=== PATIENT | female | born 1960 | race American Indian/Alaskan Native ===

== ENCOUNTER 2022-05-30 11:36 | Inpatient (IN) | payer MEDICAID, OTHER, SELFPAY ==
[2022-05-30] VITALS (34 sets, daily range): BP systolic 82–125; BP diastolic 50–71; PULSE 57–105; RESP 19–39; TEMP 36.1–36.9; O2SAT 89–96; BMI 16.6
--- NOTE | 2022-05-30 | DI.CT.S_ITS ---
PROCEDURE: CT ANGIO CHEST PE PROTOCOL INDICATIONS: HIGH D-DIMER TECHNIQUE: After the administration of intravenous contrast, 2 mm thick sections acquired from the pulmonary apices to the posterior costophrenic angles. 3-dimensional maximum intensity projection (MIP) coronal and sagittal reformats were then acquired through the thorax. For radiation dose reduction, the following was used: automated exposure control, adjustment of mA and/or kV according to patient size. COMPARISON: [facility], CT, CT ABDOMEN PELVIS W CON, 05/30/2022, 12:57. [facility], CR, XR CHEST 1V, 05/30/2022, 12:28. FINDINGS: Image quality: Excellent. Lungs and pleura: A diffuse patchy airspace consolidation in both lungs most prominent in the right lower lobe consistent with bronchopneumonia. No pleural effusions or pneumothorax. Central and peripheral airways are patent and normal in caliber. Centrilobular emphysematous changes in the apices. Mediastinum: Heart size is normal. No pericardial effusion. No mediastinal adenopathy by size criteria. Thoracic aorta and central pulmonary arteries are normal in size. Esophagus is normal in caliber. No hiatal hernia. Bones and chest wall: No suspicious bony lesions. No vertebral body compression fractures. No axillary or supraclavicular adenopathy by size criteria. Thyroid gland is normal. Abdomen: See separately dictated CT of the abdomen. IMPRESSION: 1. No pulmonary embolism. 2. Diffuse bilateral patchy areas of consolidation consistent with bronchopneumonia. Dictated by: Piero Borrero M.D. on 05/30/2022 at 14:14 Approved by: Piero Borrero M.D. on 05/30/2022 at 14:18
--- NOTE | 2022-05-30 11:52 | DI.RAD.S_ITS ---
PROCEDURE: XR CHEST 1V INDICATIONS: Shortness of breath TECHNIQUE: One view of the chest was acquired. COMPARISON: [facility], , CHEST 2 VIEW, 12/29/2014, 11:41. FINDINGS: Surgical changes and devices: None. Lungs and pleura: There are diffuse patchy bilateral airspace opacities. No pneumothorax or pleural effusion. Mediastinum: Mediastinal contours appear normal. Heart size is normal. Bones and chest wall: No suspicious bony lesions. Overlying soft tissues appear unremarkable. IMPRESSION: Diffuse patchy bilateral airspace opacities most consistent with a diffuse infectious process.. Dictated by: Piero Borrero M.D. on 05/30/2022 at 12:58 Approved by: Piero Borrero M.D. on 05/30/2022 at 13:00
[2022-05-30 12:00] LABS: Add Manual Diff / Slide Review NO; Basophils Absolute Auto 0 /uL (0-100); Basophils Percent Auto 0.1 % (0-2); Eosinophils Absolute Auto 0 /uL (0-450); Hematocrit 36.3 % (36-46); Hemoglobin 11.7 g/dL (12.0-16.0); Lymphocytes Absolute Auto 800 /uL (1100-4500); Lymphocytes Percent Auto 3.4 % (25-40); Mean Corpuscular HGB Conc 32.1 % (30-36); Mean Corpuscular Hemoglobin 27.2 PG (26-34); Mean Corpuscular Volume 84.7 fL (80-100); Monocytes Absolute Auto 900 /uL (0-900); Neutrophils Absolute Auto 20900 /uL (1500-7000); Neutrophils Percent Auto 92.5 % (50-75); Platelet Count 582 X10^3/uL (150-400); Red Blood Cell Count 4.29 X10^6/uL (4.0-5.2); Red Cell Distribution Width 15.2 % (11.6-14.8); White Blood Cell Count 22.7 X10^3/uL (4.5-11.0)
[2022-05-30 12:13] LABS: HEMOLYSIS < 15 (0-50); Lactate (Lactic Acid) 1.8 mmol/L (0.7-2.1); Potassium 4.5 mmol/L (3.4-5.1)
[2022-05-30 12:14] LABS: Alanine Aminotransferase 26 IU/L (<35); Albumin 3.6 g/dL (3.5-5.0); Albumin Globulin Ratio 0.9 (1.0-2.8); Alkaline Phosphatase 168 U/L (38-126); Aspartate Aminotransferase 53 IU/L (14-36); BUN Creatinine Ratio 21.5 (6-22); Bilirubin Total 0.9 mg/dL (0.2-1.3); Blood Urea Nitrogen 17 mg/dL (7-17); Calcium 8.5 mg/dL (8.4-10.2); Carbon Dioxide 21 mmol/L (22-32); Chloride 100 mmol/L (98-107); Estimated Glomerular Filt Rate > 60 mL/min (>60); Globulin 3.9 g/dL (1.7-4.1); Glucose 85 mg/dL (80-110); Sodium 138 mmol/L (137-145); Total Protein 7.5 g/dL (6.3-8.2)
[2022-05-30 12:18] LABS: INR 1.3 (0.9-1.3); Prothrombin Time 15.4 SECONDS (10.1-12.7)
--- NOTE | 2022-05-30 12:21 | DI.US.S_ITS ---
PROCEDURE: US ABDOMEN LIMITED INDICATIONS: RUQ pain TECHNIQUE: Real-time focused scanning was performed of the abdomen, with image documentation. COMPARISON: [facility], CT, CT ABDOMEN PELVIS W CON, 05/30/2022, 12:57. FINDINGS: The liver demonstrates normal size and overall normal echogenicity. Multiple simple appearing nonvascular hepatic cysts are seen, with the largest on the left measuring 4.3 cm and the largest on the right measuring 5.2 cm. No findings of gallstones or sludge are seen. The gallbladder wall is not thickened, measuring 3 mm or less. Gallbladder wall polyps are seen, with the largest measuring 5 mm. No specific pericholecystic fluid is seen. The sonographic Elloitt sign is negative. There is no biliary dilatation, the common bile duct measures 3 mm. No significant pancreatic abnormality is seen on these images. IMPRESSION: The gallbladder demonstrates a normal sonographic appearance. No biliary dilatation is seen. Simple appearing liver cysts are incidentally noted. Dictated by: Bonilla Whitmore M.D. on 05/30/2022 at 12:28 Approved by: Bonilla Whitmore M.D. on 05/30/2022 at 12:29
[2022-05-30 12:26] LABS: NT-proBNP (BNP-Adult 18+) 1540 pg/mL (<125); Troponin I < 0.012 ng/mL (0.01-0.034)
[2022-05-30 12:36] LABS: Influenza A - CEPHEID Flu A NEGATIVE (NEGATIVE); Influenza B - CEPHEID Flu B NEGATIVE (NEGATIVE); Respiratory Syncytial Virus Negative (Negative)
[2022-05-30 12:36] LABS: D Dimer 2007 ng/ml (<500)
[2022-05-30 12:37] LABS: COVID-19 CEPHEID 4-PLEX PCR Negative (Negative)
--- NOTE | 2022-05-30 12:37 | ED_ITS ---
HPI - Sepsis <Delmis Tenorio PA-C - Last Filed: 05/30/22 19:16> General Chief Complaint: Shortness of Breath/Dyspnea Mode of arrival: Wheelchair Source: patient Limitations: no limitations Evaluation Sepsis Screen: No Definite Risk Sepsis Infection Criteria Present: None Narrative: 62-year-old female with no reported past medical history, current daily smoker presents to the ED with 2 days of worsening shortness of breath. Patient states that her symptoms started about 3 weeks ago with a cough. Patient states that the cough has been worsening, she has started experiencing shortness of breath over the last 2 days. Patient also endorses some intermittent fevers over the last 2 days. Patient denies chest pain, nausea, vomiting, diarrhea, constipation, dysuria, lightheadedness, dizziness, syncope. Patient does endorse some right upper quadrant pain. She is unsure if it is from the coughing or something else. Patient denies any significant medical history including asthma, COPD, emphysema, cardiac issues. Review of Systems <Delmis Tenorio PA-C - Last Filed: 05/30/22 19:16> Review of Systems ROS Unobtainable: All systems reviewed & are unremarkable except as noted in HPI and below Constitutional Constitutional: Denies chills, Reports fatigue, Denies fever(s), Denies frequent falls, Denies lethargy and Denies weakness Eyes Eyes: Denies change in vision, Denies eye discharge, Denies irritation and Denies loss of vision ENT Ears, Nose, Mouth, and Throat: Denies change in voice, Denies dizziness, Denies neck pain, Denies sore throat and Denies throat swelling Cardiovascular Cardiovascular: Denies chest pain, Denies irregular heart rhythm, Denies lightheadedness, Denies palpitations, Reports dyspnea, Reports dyspnea on exertion and Denies orthopnea Respiratory Respiratory: Reports cough, Reports dyspnea, Reports dyspnea on exertion and Denies wheezing Gastrointestinal Gastrointestinal: Reports abdominal pain, Denies change in bowel habits, Denies diarrhea, Denies nausea and Denies vomiting Genitourinary Genitourinary: Denies hematuria, Denies flank pain, Denies urinary incontinence and Denies urinary urgency Musculoskeletal Musculoskeletal: Denies back pain, Denies muscle weakness, Denies neck pain, Denies numbness and Denies tingling Integumentary/Breasts Skin/Breast: Denies pruritus, Denies erythema, Denies rash and Denies wounds Neurologic Neurologic: Denies behavioral changes, Denies confusion, Denies dizziness, Denies frequent falls, Denies loss of vision, Denies numbness, Denies tingling and Denies weakness Psychiatric Psychiatric: Denies anxiety, Denies behavioral changes, Denies confusion, Denies depression, Denies homicidal ideation and Denies suicidal ideation Endocrine Endocrine: Reports fatigue, Denies flushing and Denies palpitations Hematologic/Lymphatic Hematologic/Lymphatic: Denies easy bruising Allergic/Immunologic Allergic/Immunologic: Denies urticaria, Denies throat swelling and Denies wheezing Patient History <Delmis Tenorio PA-C - Last Filed: 05/30/22 19:16> Medical History Opiate use Surgical History No pertinent past surgical history Family History Mother No pertinent past medical history Father No pertinent past medical history Social History household members: family and children Smoking Status: Current every day smoker Smoking Status: Current every day smoker alcohol intake frequency: holidays/special occasions only Substance Use Type: former substance user Exam <Delmis Tenorio PA-C - Last Filed: 05/30/22 19:16> Narrative Exam Narrative: Const General:?cooperative, healthy appearing and comfortable [facility] Head:?normal to inspection Ears:?hearing grossly normal bilaterally Nose:?external nose normal Face and sinus:?normal facial exam and sinuses nontender Mouth:?oral mucosae normal Throat:?posterior oropharynx normal Eyes General:?appearance normal, both eyes and all related structures Neck Neck:?normal visual inspection and no lymphadenopathy noted Resp Effort & Inspection:? Labored breathing, marked orthopnea, 89% on room air, 92% on 3 L NC Auscultation:?clear to auscultation bilaterally; Cardio Rate:?regular rate Rhythm:?regular rhythm GI Abdomen is soft, nondistended, tender to palpation in the right upper quadrant. Neuro General:?patient alert, patient awake and patient oriented x3 Initial Vital Signs Initial Vital Signs: Vital Signs Temperature 97.5 F L 05/30/22 11:40 Pulse Rate 105 H 05/30/22 11:40 Respiratory Rate 24 05/30/22 11:40 Blood Pressure 114/61 05/30/22 11:40 Pulse Oximetry 89 L 05/30/22 11:40 Oxygen Delivery Method 05/30/22 11:40 <Logan Bray MD - Last Filed: 05/31/22 08:07> Initial Vital Signs Initial Vital Signs: Vital Signs Temperature 97.5 F L 05/30/22 11:40 Pulse Rate 105 H 05/30/22 11:40 Respiratory Rate 24 05/30/22 11:40 Blood Pressure 114/61 05/30/22 11:40 Pulse Oximetry 89 L 05/30/22 11:40 Oxygen Delivery Method 05/30/22 11:40 Course <Delmis Tenorio PA-C - Last Filed: 05/30/22 19:16> Orders Ordered: Acetaminophen (Acetaminophen 325 Mg Tablet) 650 mg PO Q6H PRN PRN Reason: Fever/Mild Pain (1-3) Albuterol (Albuterol 2.5 Mg/3 Ml Neb (Adult)) 2.5 mg INH [id number] PRN PRN Reason: Shortness Of Breath Enoxaparin Sodium (Enoxaparin 40 Mg/0.4 Ml Syringe) 40 mg SUBCUT DAILY [facility] Sodium Chloride (Normal Saline 0.9%) 1,000 mls @ 100 mls/hr IV CONT [facility] Last Admin: 05/31/22 05:21 Dose: 100 mls/hr Documented By: Infusion: 05/31/22 04:14 Dose: 100 mls/hr Documented By: Admin: 05/30/22 18:14 Dose: 100 mls/hr Documented By: CLP Ceftriaxone Sodium 1,000 mg/ (Sodium Chloride) 100 mls @ 200 mls/hr IV Q24H [facility] Last Admin: 05/30/22 18:14 Dose: 200 mls/hr Documented By: CLP Azithromycin 500 mg/ Dextrose 250 mls @ 250 mls/hr IV Q24H [facility] Stop: 06/01/22 19:59 Last Admin: 05/30/22 20:53 Dose: 250 mls/hr Documented By: MS Methadone HCl (Methadone 10 Mg Tablet) 170 mg PO DAILY [facility] Naloxone HCl (Naloxone 0.4 Mg/Ml Vial) 0.2 mg IV Q2MIN PRN PRN Reason: Opiate Reversal Ondansetron HCl (Ondansetron 4 Mg/2 Ml Inj) 4 mg IV Q8HR PRN PRN Reason: Nausea And Vomiting Discontinued Medications Furosemide (Furosemide 40 Mg/4 Ml Vial) 40 mg IV NOW ONE Stop: 05/30/22 13:40 Last Admin: 05/30/22 16:55 Dose: Not Given Documented By: AMOS Sodium Chloride (Normal Saline 0.9%) 1,365 mls @ 455 mls/hr 30 ml/kg infuse over 3 hr (1365 ml) IV NOW ONE Stop: 05/30/22 15:14 Last Infusion: 05/30/22 16:16 Dose: 0 mls/hr Documented By: Admin: 05/30/22 12:40 Dose: 455 mls/hr Documented By: AMOS Piperacillin Sod/Tazobactam (Sod 4.5 gm/ Sodium Chloride) 100 mls @ 200 mls/hr IV NOW ONE Stop: 05/30/22 12:17 Last Infusion: 05/30/22 14:31 Dose: 0 mls/hr Documented By: Admin: 05/30/22 13:22 Dose: 200 mls/hr Documented By: AMOS Vancomycin HCl (Vancomycin) 750 mg in 150 mls @ 150 mls/hr IV NOW ONE Stop: 05/30/22 13:19 Last Infusion: 05/30/22 15:34 Dose: 0 mls/hr Documented By: Admin: 05/30/22 14:24 Dose: 150 mls/hr Documented By: AMOS Methadone HCl (Methadone 10 Mg Tablet) 40 mg PO NOW ONE Stop: 05/30/22 18:28 Last Admin: 05/30/22 18:44 Dose: 40 mg Documented By: JIMMY Vital Signs Vital signs: Vital Signs - 8 hr 05/30/22 11:40 05/30/22 11:43 05/30/22 11:44 Temperature 97.5 F L Pulse Rate 105 H 57 L 57 L Respiratory Rate 24 Blood Pressure 114/61 Pulse Oximetry 89 L 92 89 L Oxygen Delivery Method Room Air 05/30/22 11:44 05/30/22 12:00 05/30/22 12:01 Temperature Pulse Rate 88 Respiratory Rate 30 H Blood Pressure 114/61 115/53 L Pulse Oximetry 92 Oxygen Delivery Method 05/30/22 12:01 02/07/23 12:30 05/30/22 13:00 Temperature Pulse Rate 86 86 81 Respiratory Rate 30 H 34 H 26 H Blood Pressure Pulse Oximetry 92 92 94 Oxygen Delivery Method 05/30/22 13:29 05/30/22 13:29 05/30/22 13:30 Temperature Pulse Rate 73 Respiratory Rate 26 H Blood Pressure 98/53 L 93/56 L Pulse Oximetry 93 Oxygen Delivery Method 05/30/22 13:30 05/30/22 13:50 05/30/22 13:50 Temperature Pulse Rate 71 68 Respiratory Rate 25 H 26 H Blood Pressure 91/53 L Pulse Oximetry 93 94 Oxygen Delivery Method 05/30/22 14:00 05/30/22 14:00 05/30/22 14:06 Temperature Pulse Rate 69 Respiratory Rate 28 H Blood Pressure 84/54 L 96/54 L Pulse Oximetry 96 Oxygen Delivery Method 05/30/22 14:06 05/30/22 14:10 05/30/22 14:10 Temperature Pulse Rate 75 72 Respiratory Rate 32 H 28 H Blood Pressure 89/50 L Pulse Oximetry 96 95 Oxygen Delivery Method 05/30/22 14:12 05/30/22 14:12 05/30/22 14:17 Temperature Pulse Rate 71 Respiratory Rate 26 H Blood Pressure 89/51 L 82/52 L Pulse Oximetry 95 Oxygen Delivery Method 05/30/22 14:17 05/30/22 14:20 05/30/22 14:20 Temperature Pulse Rate 72 70 Respiratory Rate 28 H 22 Blood Pressure 87/52 L Pulse Oximetry 94 95 Oxygen Delivery Method 05/30/22 14:30 05/30/22 14:30 05/30/22 14:40 Temperature Pulse Rate 71 Respiratory Rate 26 H Blood Pressure 85/53 L 91/52 L Pulse Oximetry 95 Oxygen Delivery Method 05/30/22 14:40 05/30/22 14:50 05/30/22 14:50 Temperature Pulse Rate 72 71 Respiratory Rate 26 H 30 H Blood Pressure 92/53 L Pulse Oximetry 94 94 Oxygen Delivery Method 05/30/22 15:00 05/30/22 15:00 05/30/22 15:11 Temperature Pulse Rate 71 Respiratory Rate 39 H Blood Pressure 91/53 L 125/71 Pulse Oximetry 96 Oxygen Delivery Method 05/30/22 15:11 05/30/22 15:20 05/30/22 15:20 Temperature Pulse Rate 88 74 Respiratory Rate 37 H 33 H Blood Pressure 99/51 L Pulse Oximetry 90 L 93 Oxygen Delivery Method 05/30/22 15:30 05/30/22 15:30 Temperature Pulse Rate 75 Respiratory Rate 27 H Blood Pressure 90/55 L Pulse Oximetry 95 Oxygen Delivery Method <Logan Bray MD - Last Filed: 05/31/22 08:07> Orders Ordered: Acetaminophen (Acetaminophen 325 Mg Tablet) 650 mg PO Q6H PRN PRN Reason: Fever/Mild Pain (1-3) Albuterol (Albuterol 2.5 Mg/3 Ml Neb (Adult)) 2.5 mg INH [id number] PRN PRN Reason: Shortness Of Breath Enoxaparin Sodium (Enoxaparin 40 Mg/0.4 Ml Syringe) 40 mg SUBCUT DAILY [facility] Sodium Chloride (Normal Saline 0.9%) 1,000 mls @ 100 mls/hr IV CONT [facility] Last Admin: 05/31/22 05:21 Dose: 100 mls/hr Documented By: Infusion: 05/31/22 04:14 Dose: 100 mls/hr Documented By: Admin: 05/30/22 18:14 Dose: 100 mls/hr Documented By: JIMMY Ceftriaxone Sodium 1,000 mg/ (Sodium Chloride) 100 mls @ 200 mls/hr IV Q24H [facility] Last Admin: 05/30/22 18:14 Dose: 200 mls/hr Documented By: CLP Azithromycin 500 mg/ Dextrose 250 mls @ 250 mls/hr IV Q24H [facility] Stop: 06/01/22 19:59 Last Admin: 05/30/22 20:53 Dose: 250 mls/hr Documented By: Methadone HCl (Methadone 10 Mg Tablet) 170 mg PO DAILY [facility] Naloxone HCl (Naloxone 0.4 Mg/Ml Vial) 0.2 mg IV Q2MIN PRN PRN Reason: Opiate Reversal Ondansetron HCl (Ondansetron 4 Mg/2 Ml Inj) 4 mg IV Q8HR PRN PRN Reason: Nausea And Vomiting Discontinued Medications Furosemide (Furosemide 40 Mg/4 Ml Vial) 40 mg IV NOW ONE Stop: 05/30/22 13:40 Last Admin: 05/30/22 16:55 Dose: Not Given Documented By: AMOS Sodium Chloride (Normal Saline 0.9%) 1,365 mls @ 455 mls/hr 30 ml/kg infuse over 3 hr (1365 ml) IV NOW ONE Stop: 05/30/22 15:14 Last Infusion: 05/30/22 16:16 Dose: 0 mls/hr Documented By: Admin: 05/30/22 12:40 Dose: 455 mls/hr Documented By: AMOS Piperacillin Sod/Tazobactam (Sod 4.5 gm/ Sodium Chloride) 100 mls @ 200 mls/hr IV NOW ONE Stop: 05/30/22 12:17 Last Infusion: 05/30/22 14:31 Dose: 0 mls/hr Documented By: Admin: 05/30/22 13:22 Dose: 200 mls/hr Documented By: AMOS Vancomycin HCl (Vancomycin) 750 mg in 150 mls @ 150 mls/hr IV NOW ONE Stop: 05/30/22 13:19 Last Infusion: 05/30/22 15:34 Dose: 0 mls/hr Documented By: Admin: 05/30/22 14:24 Dose: 150 mls/hr Documented By: AMOS Methadone HCl (Methadone 10 Mg Tablet) 40 mg PO NOW ONE Stop: 05/30/22 18:28 Last Admin: 05/30/22 18:44 Dose: 40 mg Documented By: JIMMY Vital Signs Vital signs: Vital Signs - 8 hr 05/30/22 11:40 05/30/22 11:43 05/30/22 11:44 Temperature 97.5 F L Pulse Rate 105 H 57 L 57 L Respiratory Rate 24 Blood Pressure 114/61 Pulse Oximetry 89 L 92 89 L Oxygen Delivery Method Room Air 05/30/22 11:44 05/30/22 12:00 05/30/22 12:01 Temperature Pulse Rate 88 Respiratory Rate 30 H Blood Pressure 114/61 115/53 L Pulse Oximetry 92 Oxygen Delivery Method 05/30/22 12:01 05/30/22 12:30 05/30/22 13:00 Temperature Pulse Rate 86 86 81 Respiratory Rate 30 H 34 H 26 H Blood Pressure Pulse Oximetry 92 92 94 Oxygen Delivery Method 05/30/22 13:29 05/30/22 13:29 05/30/22 13:30 Temperature Pulse Rate 73 Respiratory Rate 26 H Blood Pressure 98/53 L 93/56 L Pulse Oximetry 93 Oxygen Delivery Method 05/30/22 13:30 05/30/22 13:50 05/30/22 13:50 Temperature Pulse Rate 71 68 Respiratory Rate 25 H 26 H Blood Pressure 91/53 L Pulse Oximetry 93 94 Oxygen Delivery Method 05/30/22 14:00 05/30/22 14:00 05/30/22 14:06 Temperature Pulse Rate 69 Respiratory Rate 28 H Blood Pressure 84/54 L 96/54 L Pulse Oximetry 96 Oxygen Delivery Method 05/30/22 14:06 05/30/22 14:10 05/30/22 14:10 Temperature Pulse Rate 75 72 Respiratory Rate 32 H 28 H Blood Pressure 89/50 L Pulse Oximetry 96 95 Oxygen Delivery Method 05/30/22 14:12 05/30/22 14:12 05/30/22 14:17 Temperature Pulse Rate 71 Respiratory Rate 26 H Blood Pressure 89/51 L 82/52 L Pulse Oximetry 95 Oxygen Delivery Method 05/30/22 14:17 05/30/22 14:20 05/30/22 14:20 Temperature Pulse Rate 72 70 Respiratory Rate 28 H 22 Blood Pressure 87/52 L Pulse Oximetry 94 95 Oxygen Delivery Method 05/30/22 14:30 05/30/22 14:30 05/30/22 14:40 Temperature Pulse Rate 71 Respiratory Rate 26 H Blood Pressure 85/53 L 91/52 L Pulse Oximetry 95 Oxygen Delivery Method 05/30/22 14:40 05/30/22 14:50 05/30/22 14:50 Temperature Pulse Rate 72 71 Respiratory Rate 26 H 30 H Blood Pressure 92/53 L Pulse Oximetry 94 94 Oxygen Delivery Method 05/30/22 15:00 05/30/22 15:00 05/30/22 15:11 Temperature Pulse Rate 71 Respiratory Rate 39 H Blood Pressure 91/53 L 125/71 Pulse Oximetry 96 Oxygen Delivery Method 05/30/22 15:11 05/30/22 15:20 05/30/22 15:20 Temperature Pulse Rate 88 74 Respiratory Rate 37 H 33 H Blood Pressure 99/51 L Pulse Oximetry 90 L 93 Oxygen Delivery Method 05/30/22 15:30 05/30/22 15:30 Temperature Pulse Rate 75 Respiratory Rate 27 H Blood Pressure 90/55 L Pulse Oximetry 95 Oxygen Delivery Method Sepsis Evaluation (ED) <Delmis Tenorio PA-C - Last Filed: 05/30/22 19:16> Triage Screening Sepsis Screen: No Definite Risk Level 1 - Infection Sepsis Infection Criteria Present: None Response It is my opinion that his patient have a likely infectious etiology for meeting sepsis criteria: Does Fluid calculation based on 30 mL/kg within 1hr of criteria: ABW used Antibiotics initiated within 1 hr of Sepis dx: Yes Tissue Perfusion Reassessed within 6 hrs of infusion start time: Yes Date of Tissue Perfusion Reassessment completed: 05/30/22 Time Tissue Perfusion Reassessment completed: 16:39 MDM - Sepsis <Delmis Tenorio PA-C - Last Filed: 05/30/22 19:16> Lab Data 05/30/22 11:45 05/30/22 11:45 Labs: Lab Results 05/30/22 05/30/22 05/30/22 Range/Units 11:45 11:45 11:45 WBC 22.7 H (4.5-11.0) X10^3/uL RBC 4.29 (4.0-5.2) X10^6/uL Hgb 11.7 L (12.0-16.0) g/dL Hct 36.3 (36-46) % MCV 84.7 (80-100) fL MCH 27.2 (26-34) PG MCHC 32.1 (30-36) % RDW 15.2 H (11.6-14.8) % Plt Count 582 H (150-400) X10^3/uL Neut % (Auto) 92.5 H (50-75) % Lymph % (Auto) 3.4 L (25-40) % [place] % (Auto) 4.0 (3-14) % Eos % (Auto) 0.0 L (2-4) % Baso % (Auto) 0.1 (0-2) % Neut # (Auto) 98204 H (9638-2255) /uL Lymph # (Auto) 800 L (3301-1176) /uL [place] # (Auto) 900 (0-900) /uL Eos # (Auto) 0 (0-450) /uL Baso # (Auto) 0 (0-100) /uL PT 15.4 H (10.1-12.7) SECONDS INR 1.3 (0.9-1.3) D-Dimer (<500) ng/ml Sodium 138 (137-145) mmol/L Potassium 4.5 (3.4-5.1) mmol/L Chloride 100 (98-107) mmol/L Carbon Dioxide 21 L (22-32) mmol/L BUN 17 (7-17) mg/dL Creatinine 0.79 (0.52-1.04) mg/dL Estimated GFR > 60 (>60) mL/min BUN/Creatinine Ratio 21.5 (6-22) Glucose 85 (80-110) mg/dL Lactate (0.7-2.1) mmol/L Calcium 8.5 (8.4-10.2) mg/dL Total Bilirubin 0.9 (0.2-1.3) mg/dL AST 53 H (14-36) IU/L ALT 26 (<35) IU/L Alkaline Phosphatase 168 H (38-126) U/L Troponin I < 0.012 (0.01-0.034) ng/mL NT-Pro-B Natriuret Pep 1540 H (<125) pg/mL Total Protein 7.5 (6.3-8.2) g/dL Albumin 3.6 (3.5-5.0) g/dL Globulin 3.9 (1.7-4.1) g/dL Albumin/Globulin Ratio 0.9 L (1.0-2.8) Procalcitonin (<0.5) ng/mL SARS-CoV-2 (PCR) (Negative) Influenza A (RT-PCR) (NEGATIVE) Influenza B (RT-PCR) (NEGATIVE) RSV (PCR) (Negative) 05/30/22 05/30/22 05/30/22 Range/Units 11:45 11:45 11:45 WBC (4.5-11.0) X10^3/uL RBC (4.0-5.2) X10^6/uL Hgb (12.0-16.0) g/dL Hct (36-46) % MCV (80-100) fL MCH (26-34) PG MCHC (30-36) % RDW (11.6-14.8) % Plt Count (150-400) X10^3/uL Neut % (Auto) (50-75) % Lymph % (Auto) (25-40) % [place] % (Auto) (3-14) % Eos % (Auto) (2-4) % Baso % (Auto) (0-2) % Neut # (Auto) (2083-4974) /uL Lymph # (Auto) (5923-9802) /uL [place] # (Auto) (0-900) /uL Eos # (Auto) (0-450) /uL Baso # (Auto) (0-100) /uL PT (10.1-12.7) SECONDS INR (0.9-1.3) D-Dimer 2007 H (<500) ng/ml Sodium (137-145) mmol/L Potassium (3.4-5.1) mmol/L Chloride (98-107) mmol/L Carbon Dioxide (22-32) mmol/L BUN (7-17) mg/dL Creatinine (0.52-1.04) mg/dL Estimated GFR (>60) mL/min BUN/Creatinine Ratio (6-22) Glucose (80-110) mg/dL Lactate 1.8 (0.7-2.1) mmol/L Calcium (8.4-10.2) mg/dL Total Bilirubin (0.2-1.3) mg/dL AST (14-36) IU/L ALT (<35) IU/L Alkaline Phosphatase (38-126) U/L Troponin I (0.01-0.034) ng/mL NT-Pro-B Natriuret Pep (<125) pg/mL Total Protein (6.3-8.2) g/dL Albumin (3.5-5.0) g/dL Globulin (1.7-4.1) g/dL Albumin/Globulin Ratio (1.0-2.8) Procalcitonin 1.90 H (<0.5) ng/mL SARS-CoV-2 (PCR) (Negative) Influenza A (RT-PCR) (NEGATIVE) Influenza B (RT-PCR) (NEGATIVE) RSV (PCR) (Negative) 05/30/22 Range/Units 11:47 WBC (4.5-11.0) X10^3/uL RBC (4.0-5.2) X10^6/uL Hgb (12.0-16.0) g/dL Hct (36-46) % MCV (80-100) fL MCH (26-34) PG MCHC (30-36) % RDW (11.6-14.8) % Plt Count (150-400) X10^3/uL Neut % (Auto) (50-75) % Lymph % (Auto) (25-40) % [place] % (Auto) (3-14) % Eos % (Auto) (2-4) % Baso % (Auto) (0-2) % Neut # (Auto) (8442-9137) /uL Lymph # (Auto) (8159-9601) /uL [place] # (Auto) (0-900) /uL Eos # (Auto) (0-450) /uL Baso # (Auto) (0-100) /uL PT (10.1-12.7) SECONDS INR (0.9-1.3) D-Dimer (<500) ng/ml Sodium (137-145) mmol/L Potassium (3.4-5.1) mmol/L Chloride (98-107) mmol/L Carbon Dioxide (22-32) mmol/L BUN (7-17) mg/dL Creatinine (0.52-1.04) mg/dL Estimated GFR (>60) mL/min BUN/Creatinine Ratio (6-22) Glucose (80-110) mg/dL Lactate (0.7-2.1) mmol/L Calcium (8.4-10.2) mg/dL Total Bilirubin (0.2-1.3) mg/dL AST (14-36) IU/L ALT (<35) IU/L Alkaline Phosphatase (38-126) U/L Troponin I (0.01-0.034) ng/mL NT-Pro-B Natriuret Pep (<125) pg/mL Total Protein (6.3-8.2) g/dL Albumin (3.5-5.0) g/dL Globulin (1.7-4.1) g/dL Albumin/Globulin Ratio (1.0-2.8) Procalcitonin (<0.5) ng/mL SARS-CoV-2 (PCR) Negative (Negative) Influenza A (RT-PCR) Flu a negative (NEGATIVE) Influenza B (RT-PCR) Flu b negative (NEGATIVE) RSV (PCR) Negative (Negative) MDM Narrative Medical decision making narrative: 62-year-old female with no reported past medical history, current daily smoker presents to the ED with 2 days of worsening shortness of breath. Concern for pneumonia versus viral URI versus ACS versus CHF exacerbation versus sepsis versus PE versus cholecystitis versus cholangitis versus choledocholithiasis versus pancreatitis versus UTI versus pyelonephritis versus other. Will obtain EKG, chest x-ray, labs, troponin, lactate, lipase, BNP, UA, ultrasound abdomen. Will consider CT chest abd pel. On exam, patient appears to be saturating at 88% on room air, exhibits marked orthopnea. Patient also has moderately increased work of breathing. Patient was put on 3 L of oxygen via nasal cannula, SpO2 92%. Patient is tachycardic 05/24/2004, tachypneic to 24, patient afebrile. White count elevated to 22.5. Will initiate sepsis protocol with sepsis fluids, blood cultures, broad-spectrum antibiotics. Will reassess. NT-proBNP elevated to 1540; d-dimer elevated to 2007. Will order CT chest, abd pelvis. CTA shows no pulmonary embolism, however shows diffuse bilateral patchy areas of consolidation consistent with bronchopneumonia. CT abdomen pelvis without acute findings. Ultrasound abdomen without acute findings. Echocardiogram was also ordered, with ejection fraction of 60-65%, no acute findings. Patient's blood pressures tended to be soft with the lowest pressure registering at 84/54, 2 L of fluids bolused. Blood pressure responded well to fluids, improved to high 90s systolic. Patient appears stable, with normal work of breathing on 3 L nasal cannula, saturating at 97%. Urinalysis is outstanding at this time. Hospitalist Dr. Sen was consulted, he accepts patient for admission as inpatient. <Logan Bray MD - Last Filed: 05/31/22 08:07> Lab Data Labs: Lab Results 05/30/22 05/30/22 05/30/22 Range/Units 11:45 11:45 11:45 WBC 22.7 H (4.5-11.0) X10^3/uL RBC 4.29 (4.0-5.2) X10^6/uL Hgb 11.7 L (12.0-16.0) g/dL Hct 36.3 (36-46) % MCV 84.7 (80-100) fL MCH 27.2 (26-34) PG MCHC 32.1 (30-36) % RDW 15.2 H (11.6-14.8) % Plt Count 582 H (150-400) X10^3/uL Neut % (Auto) 92.5 H (50-75) % Lymph % (Auto) 3.4 L (25-40) % [place] % (Auto) 4.0 (3-14) % Eos % (Auto) 0.0 L (2-4) % Baso % (Auto) 0.1 (0-2) % Neut # (Auto) 66952 H (4527-1526) /uL Lymph # (Auto) 800 L (9389-7595) /uL [place] # (Auto) 900 (0-900) /uL Eos # (Auto) 0 (0-450) /uL Baso # (Auto) 0 (0-100) /uL PT 15.4 H (10.1-12.7) SECONDS INR 1.3 (0.9-1.3) D-Dimer (<500) ng/ml Sodium 138 (137-145) mmol/L Potassium 4.5 (3.4-5.1) mmol/L Chloride 100 (98-107) mmol/L Carbon Dioxide 21 L (22-32) mmol/L BUN 17 (7-17) mg/dL Creatinine 0.79 (0.52-1.04) mg/dL Estimated GFR > 60 (>60) mL/min BUN/Creatinine Ratio 21.5 (6-22) Glucose 85 (80-110) mg/dL Lactate (0.7-2.1) mmol/L Calcium 8.5 (8.4-10.2) mg/dL Total Bilirubin 0.9 (0.2-1.3) mg/dL AST 53 H (14-36) IU/L ALT 26 (<35) IU/L Alkaline Phosphatase 168 H (38-126) U/L Troponin I < 0.012 (0.01-0.034) ng/mL NT-Pro-B Natriuret Pep 1540 H (<125) pg/mL Total Protein 7.5 (6.3-8.2) g/dL Albumin 3.6 (3.5-5.0) g/dL Globulin 3.9 (1.7-4.1) g/dL Albumin/Globulin Ratio 0.9 L (1.0-2.8) Procalcitonin (<0.5) ng/mL SARS-CoV-2 (PCR) (Negative) Influenza A (RT-PCR) (NEGATIVE) Influenza B (RT-PCR) (NEGATIVE) RSV (PCR) (Negative) 05/30/22 05/30/22 05/30/22 Range/Units 11:45 11:45 11:45 WBC (4.5-11.0) X10^3/uL RBC (4.0-5.2) X10^6/uL Hgb (12.0-16.0) g/dL Hct (36-46) % MCV (80-100) fL MCH (26-34) PG MCHC (30-36) % RDW (11.6-14.8) % Plt Count (150-400) X10^3/uL Neut % (Auto) (50-75) % Lymph % (Auto) (25-40) % [place] % (Auto) (3-14) % Eos % (Auto) (2-4) % Baso % (Auto) (0-2) % Neut # (Auto) (1497-1743) /uL Lymph # (Auto) (4848-3003) /uL [place] # (Auto) (0-900) /uL Eos # (Auto) (0-450) /uL Baso # (Auto) (0-100) /uL PT (10.1-12.7) SECONDS INR (0.9-1.3) D-Dimer 2007 H (<500) ng/ml Sodium (137-145) mmol/L Potassium (3.4-5.1) mmol/L Chloride (98-107) mmol/L Carbon Dioxide (22-32) mmol/L BUN (7-17) mg/dL Creatinine (0.52-1.04) mg/dL Estimated GFR (>60) mL/min BUN/Creatinine Ratio (6-22) Glucose (80-110) mg/dL Lactate 1.8 (0.7-2.1) mmol/L Calcium (8.4-10.2) mg/dL Total Bilirubin (0.2-1.3) mg/dL AST (14-36) IU/L ALT (<35) IU/L Alkaline Phosphatase (38-126) U/L Troponin I (0.01-0.034) ng/mL NT-Pro-B Natriuret Pep (<125) pg/mL Total Protein (6.3-8.2) g/dL Albumin (3.5-5.0) g/dL Globulin (1.7-4.1) g/dL Albumin/Globulin Ratio (1.0-2.8) Procalcitonin 1.90 H (<0.5) ng/mL SARS-CoV-2 (PCR) (Negative) Influenza A (RT-PCR) (NEGATIVE) Influenza B (RT-PCR) (NEGATIVE) RSV (PCR) (Negative) 05/30/22 Range/Units 11:47 WBC (4.5-11.0) X10^3/uL RBC (4.0-5.2) X10^6/uL Hgb (12.0-16.0) g/dL Hct (36-46) % MCV (80-100) fL MCH (26-34) PG MCHC (30-36) % RDW (11.6-14.8) % Plt Count (150-400) X10^3/uL Neut % (Auto) (50-75) % Lymph % (Auto) (25-40) % [place] % (Auto) (3-14) % Eos % (Auto) (2-4) % Baso % (Auto) (0-2) % Neut # (Auto) (7183-6722) /uL Lymph # (Auto) (4036-2059) /uL [place] # (Auto) (0-900) /uL Eos # (Auto) (0-450) /uL Baso # (Auto) (0-100) /uL PT (10.1-12.7) SECONDS INR (0.9-1.3) D-Dimer (<500) ng/ml Sodium (137-145) mmol/L Potassium (3.4-5.1) mmol/L Chloride (98-107) mmol/L Carbon Dioxide (22-32) mmol/L BUN (7-17) mg/dL Creatinine (0.52-1.04) mg/dL Estimated GFR (>60) mL/min BUN/Creatinine Ratio (6-22) Glucose (80-110) mg/dL Lactate (0.7-2.1) mmol/L Calcium (8.4-10.2) mg/dL Total Bilirubin (0.2-1.3) mg/dL AST (14-36) IU/L ALT (<35) IU/L Alkaline Phosphatase (38-126) U/L Troponin I (0.01-0.034) ng/mL NT-Pro-B Natriuret Pep (<125) pg/mL Total Protein (6.3-8.2) g/dL Albumin (3.5-5.0) g/dL Globulin (1.7-4.1) g/dL Albumin/Globulin Ratio (1.0-2.8) Procalcitonin (<0.5) ng/mL SARS-CoV-2 (PCR) Negative (Negative) Influenza A (RT-PCR) Flu a negative (NEGATIVE) Influenza B (RT-PCR) Flu b negative (NEGATIVE) RSV (PCR) Negative (Negative) Discharge Plan Departure Patient Disposition: Admitted As Inpatient Clinical Impression: Sepsis Admit Date/Time: 05/30/22 16:24 Admit Provider: Merrill Sen <Logan Bray MD - Last Filed: 05/31/22 08:07> Cosign ED Attending Cosignature Attestation: I was immediately available in the department for consultation. Documentation has been reviewed. I agree with assessment and plan.
[2022-05-30] MEDS: SODIUM CHLORIDE 0.9% 1,365 ML 455 ML IV (12:40)
--- NOTE | 2022-05-30 13:02 | DI.CT.S_ITS ---
PROCEDURE: CT ABDOMEN PELVIS W CON INDICATIONS: ?PE; elev dimer; ?pna; SOB; RUQ pain TECHNIQUE: After the administration of intravenous contrast, axial sections acquired from the lung bases to the pubic symphysis. Coronal and sagittal reformats were performed. For radiation dose reduction, the following was used: automated exposure control, adjustment of mA and/or kV according to patient size. COMPARISON: None. FINDINGS: Image quality: Excellent. Lung bases: See separately dictated CT of the chest. Solid organs: Liver: The liver has multiple simple cysts, the largest measuring up to 4 cm. The portal vein and hepatic veins are patent. Biliary: The gallbladder has no gallstones, pericholecystic fluid, gallbladder wall thickening, or surrounding inflammatory change. Pancreas: The pancreas has no mass or ductal dilatation. There is no surrounding inflammation. Spleen: Normal size. There are no masses. Adrenals: No hypertrophy or nodules. Kidneys: No obstructive calculus or hydronephrosis. No solid mass. No cystic mass. Peritoneum and bowel: The distal esophagus and stomach are normal. The small bowel has a normal caliber and appearance. The terminal ileum is normal. The large bowel has a normal caliber with increased stool consistent with constipation. The appendix is not definitively visualized and therefore acute appendicitis cannot be excluded; however there are no secondary findings to suggest acute appendicitis. No free fluid or air. Nodes and vessels: No retroperitoneal or mesenteric adenopathy by size criteria. The aorta has atherosclerosis with no aneurysmal dilatation. Miscellaneous: No abdominal wall mass or hernia. PELVIS: Genitourinary: The bladder has no wall thickening or mass. No bladder calcifications. Bones: No suspicious bony lesions. No vertebral body compression fractures. IMPRESSION: 1. No acute abdominal or pelvic abnormality. 2. Simple hepatic cysts. 3. Constipation. Dictated by: Piero Borrero M.D. on 05/30/2022 at 14:25 Approved by: Piero Borrero M.D. on 05/30/2022 at 14:30
[2022-05-30] MEDS: PIPERACILLIN/TAZO 4.5 GM in SODIUM CHLORIDE 0.9% 100 ML IV (13:22)
--- NOTE | 2022-05-30 13:43 | DI.ECHO.S_ITS ---
[place] +---------+ Hospital +---------+ : : [address] : : : : [id number] : : : : Phone: [phone]+ Echocardiogram Report + + :Name: CAIO LAW Study Date: 05/30/2022 Height: 60 in : :[facility] ReadingLocation: Weight: 85 lb : : Gender: Female BSA: 1.3 m2 : :: 1960 Age: 62 yrs BP: 125/71 mmHg: :Reason For Study: NEW CONGESTIVE HEART FAILURE : :Ordering Physician: ALEX TAPIA Performed By: Jeanie Perry : :Referring: ALEX TAPIA : + + Interpretation Summary The left ventricle is normal in size and wall thickness. Left ventricular systolic function appears normal without focal wall motion abnormalities. The ejection fraction is estimated to be 60-65%. Diastolic parameters suggest probable normal left ventricular diastolic function and normal filling pressures. The right ventricle is normal in size and function. The right ventricular systolic pressure is estimated to be at least 23 mmHg based on an estimated right atrial pressure of 3 mm Hg. The left atrial size is normal. Right atrial size is normal. There is mild mitral regurgitation. There is no other significant valvular heart disease. The aortic root is normal size. Procedure: A two-dimensional transthoracic echocardiogram with color flow and Doppler was performed. The study quality was technically adequate. There is no prior echocardiogram noted for this patient. The patient was in sinus rhythm with heart rates between 75-88 bpm during the exam. Left Ventricle: The left ventricle is normal in size and wall thickness. A false chord is noted (normal variant). Left ventricular systolic function appears normal without focal wall motion abnormalities. The ejection fraction is estimated to be 60-65%. Diastolic parameters suggest probable normal left ventricular diastolic function and normal filling pressures. Right Ventricle: The right ventricle is normal in size and function. Atria: The left atrial size is normal. Right atrial size is normal. There is no Doppler evidence for an interatrial shunt. Mitral Valve: The mitral valve is normal in structure and function. There is mild mitral regurgitation. Aortic Valve: The aortic valve is grossly normal. The aortic valve opens well. There is no aortic valve stenosis. No aortic regurgitation is present. Tricuspid Valve: The tricuspid valve is normal in structure and function. There is mild tricuspid regurgitation. The right ventricular systolic pressure is estimated to be at least 23 mmHg based on an estimated right atrial pressure of 3 mm Hg. Pulmonic Valve: The pulmonic valve is not well seen, but is grossly normal. There is no pulmonic valvular regurgitation. There is no other significant valvular heart disease. Great Vessels: The aortic root is normal size. The ascending aorta could not be visualized. The IVC is of normal diameter and collapses greater than 50% with a sniff. This suggests a low right atrial pressure of 3 mm Hg. Pericardium/ Pleura There is no pericardial effusion. There is no pleural effusion. MMode/2D Measurements & Calculations LVIDd: 4.6 cm LVOT diam: 2.1 cm LVIDs: 2.7 cm Ao root diam: 2.8 cm FS: 40.8 % IVSd: 0.81 cm LVPWd: 0.66 cm LV cabrera. diameter/BSA (cm/m^2): 3.5 LV sys. diameter/BSA (cm/m^2): 2.1 LA A2 area: 12.9 cm2 RA long axis: 4.4 cm LA A4 area: 14.9 cm2 RA area: 14.2 cm2 LA length (vol): 4.6 cm RA vol: 38.8 ml LA vol: 35.7 ml RA : 29.9 ml/m2 LA vol index: 27.5 ml/m2 IVC diam: 1.4 cm RVD1 (basal): 3.8 cm RVD2 (mid): 3.0 cm TAPSE: 2.6 cm Doppler Measurements & Calculations Ao V2 max: 116.0 cm/sec LVOT Max Tom: 99.9 cm/sec Ao V2 mean: 81.0 cm/sec LV V1 max P.0 mmHg Ao max P.4 mmHg LV V1 VTI: 19.9 cm Ao mean P.0 mmHg NASIR(I,D): 3.1 cm2 Ao V2 VTI: 22.8 cm NASIR(V,D): 3.0 cm2 sev ratio: 0.87 NASIR indexed to BSA (cm^2/m^2): 2.4 MV E max tom: 75.1 cm/sec TR max tom: 220.8 cm/sec MV A max tom: 76.9 cm/sec TR max P.5 mmHg MV E/A: 0.98 PA V2 max: 66.8 cm/sec Med Peak E' Tom: 9.3 cm/sec PA V2 mean: 49.5 cm/sec E/E' med: 8.1 PA mean P.1 mmHg Lat Peak E' Tom: 12.7 cm/sec PA pr(Accel): 31.0 mmHg E/E' lat: 5.9 E/e' average: 7.0 MV dec time: 0.22 sec SV(LVOT): 70.3 ml Reading Physician:04:12 PM
[2022-05-30] MEDS: VANCOMYCIN 750 MG/150 ML PIGGYBACK 150 MG IV (14:24)
[2022-05-30] MEDS: cefTRIAXone 1,000 MG in SODIUM CHLORIDE 0.9% 100 ML 200 MG IV (18:14)
[2022-05-30] MEDS: SODIUM CHLORIDE 0.9% 1,000 ML 100 ML IV (18:14)
--- NOTE | 2022-05-30 18:22 | P.HP_ITS ---
History of Present Illness History of Present Illness Date Patient Seen: 05/30/22 Time Patient Seen: 18:15 Chief complaint: hard time breathing T-3/cough getting worse Narrative: This is a 62-year-old female with a past medical history of opiate use on methadone (taking fentanyl pills as well daily) who presents with worsening shortness of breath over the past week. Her symptoms started over 3 weeks ago, progressing to productive with green sputum over the past week. She normally has no difficulty ambulating, but over the past week she can not ambulate more than 5 or 6 steps without feeling short of breath. As weakness, but denies unilateral weakness, numbness, or tingling. She notes subjective fever but has not measured at home, but denies chills, abdominal pain, dysuria, urine frequency, nausea, vomiting, or diarrhea. She denies any sick contacts or recent travel. In the emergency room, patient was hypoxic to the mid 80s on room air, improved with a couple of L of supplemental oxygen. The remaining signs were unremarkable, though over rest of her stay her blood pressures did fall but were responsive to fluids. Laboratory evaluation was notable for leukocytosis with WBC 22.7, mild anemia with hemoglobin of 11.7, and thrombocytosis with platelet count of 582. D-dimer was elevated at 2007. Chemistries were notable for an elevated proBNP at 1540, serotonin at 1.9, but the remainder of the studies were unremarkable. COVID-19, flu, and RSV, were negative by PCR Patient History Medical History Opiate use Surgical History No pertinent past surgical history Family & Social History Family History Mother No pertinent past medical history Father No pertinent past medical history Social History: household members family,children Prior Living Arrangements Apartment/Condo Safety & Behavioral: Feels Safe in Current Yes Environment Been Physically Hurt or No Threatened By a Person Tobacco & Substance use: Smoking Status Current every day smoker alcohol intake frequency holiday/special occasion Substance Use Type former substance user,opiates Meds Home Medications and Allergies Home Medications Medication Instructions Recorded Confirmed Type methadone 10 mg tablet 170 mg PO QAM 05/30/22 05/30/22 History Allergies Allergy/AdvReac Type Severity Reaction Status Date / Time penicillin G Allergy Unknown NAUSEA Verified 05/30/22 12:13 Review of Systems Review of Systems Narrative: All other systems reviewed with the patient and are negative unless otherwise stated. Exam Vital Signs (past 8 hours): - 05/30/22 11:40 05/30/22 11:43 05/30/22 11:44 Temperature 97.5 F L Pulse Rate 105 H 57 L 57 L Respiratory Rate 24 Blood Pressure 114/61 Pulse Oximetry 89 L 92 89 L Oxygen Delivery Method Room Air Oxygen Flow Rate 05/30/22 11:44 05/30/22 12:00 05/30/22 12:01 Temperature Pulse Rate 88 Respiratory Rate 30 H Blood Pressure 114/61 115/53 L Pulse Oximetry 92 Oxygen Delivery Method Oxygen Flow Rate 05/30/22 12:01 05/30/22 12:30 05/30/22 13:00 Temperature Pulse Rate 86 86 81 Respiratory Rate 30 H 34 H 26 H Blood Pressure Pulse Oximetry 92 92 94 Oxygen Delivery Method Oxygen Flow Rate 05/30/22 13:29 05/30/22 13:29 05/30/22 13:30 Temperature Pulse Rate 73 Respiratory Rate 26 H Blood Pressure 98/53 L 93/56 L Pulse Oximetry 93 Oxygen Delivery Method Oxygen Flow Rate 05/30/22 13:30 05/30/22 13:50 05/30/22 13:50 Temperature Pulse Rate 71 68 Respiratory Rate 25 H 26 H Blood Pressure 91/53 L Pulse Oximetry 93 94 Oxygen Delivery Method Oxygen Flow Rate 05/30/22 14:00 05/30/22 14:00 05/30/22 14:06 Temperature Pulse Rate 69 Respiratory Rate 28 H Blood Pressure 84/54 L 96/54 L Pulse Oximetry 96 Oxygen Delivery Method Oxygen Flow Rate 05/30/22 14:06 05/30/22 14:10 05/30/22 14:10 Temperature Pulse Rate 75 72 Respiratory Rate 32 H 28 H Blood Pressure 89/50 L Pulse Oximetry 96 95 Oxygen Delivery Method Oxygen Flow Rate 05/30/22 14:12 05/30/22 14:12 05/30/22 14:17 Temperature Pulse Rate 71 Respiratory Rate 26 H Blood Pressure 89/51 L 82/52 L Pulse Oximetry 95 Oxygen Delivery Method Oxygen Flow Rate 05/30/22 14:17 05/30/22 14:20 05/30/22 14:20 Temperature Pulse Rate 72 70 Respiratory Rate 28 H 22 Blood Pressure 87/52 L Pulse Oximetry 94 95 Oxygen Delivery Method Oxygen Flow Rate 05/30/22 14:30 05/30/22 14:30 05/30/22 14:40 Temperature Pulse Rate 71 Respiratory Rate 26 H Blood Pressure 85/53 L 91/52 L Pulse Oximetry 95 Oxygen Delivery Method Oxygen Flow Rate 05/30/22 14:40 05/30/22 14:50 05/30/22 14:50 Temperature Pulse Rate 72 71 Respiratory Rate 26 H 30 H Blood Pressure 92/53 L Pulse Oximetry 94 94 Oxygen Delivery Method Oxygen Flow Rate 05/30/22 15:00 05/30/22 15:00 05/30/22 15:11 Temperature Pulse Rate 71 Respiratory Rate 39 H Blood Pressure 91/53 L 125/71 Pulse Oximetry 96 Oxygen Delivery Method Oxygen Flow Rate 05/30/22 15:11 05/30/22 15:20 05/30/22 15:20 Temperature Pulse Rate 88 74 Respiratory Rate 37 H 33 H Blood Pressure 99/51 L Pulse Oximetry 90 L 93 Oxygen Delivery Method Oxygen Flow Rate 05/30/22 15:30 05/30/22 15:30 05/30/22 15:40 Temperature Pulse Rate 75 Respiratory Rate 27 H Blood Pressure 90/55 L 95/53 L Pulse Oximetry 95 Oxygen Delivery Method Oxygen Flow Rate 05/30/22 15:40 05/30/22 15:50 05/30/22 15:50 Temperature Pulse Rate 73 72 Respiratory Rate 30 H 31 H Blood Pressure 99/57 L Pulse Oximetry 95 96 Oxygen Delivery Method Oxygen Flow Rate 2 2 05/30/22 16:00 05/30/22 16:00 05/30/22 16:10 Temperature Pulse Rate 71 70 Respiratory Rate 26 H 37 H Blood Pressure 98/59 L Pulse Oximetry 96 96 Oxygen Delivery Method Oxygen Flow Rate 2 2 05/30/22 16:10 05/30/22 16:21 05/30/22 16:21 Temperature Pulse Rate 82 Respiratory Rate 33 H Blood Pressure 97/57 L 110/55 L Pulse Oximetry 96 Oxygen Delivery Method Oxygen Flow Rate 2 05/30/22 16:30 05/30/22 16:30 05/30/22 16:40 Temperature Pulse Rate 72 Respiratory Rate 23 Blood Pressure 102/58 L 99/56 L Pulse Oximetry 96 Oxygen Delivery Method Oxygen Flow Rate 2 05/30/22 16:40 05/30/22 17:28 05/30/22 17:32 Temperature Pulse Rate 71 Respiratory Rate 26 H Blood Pressure Pulse Oximetry 95 93 Oxygen Delivery Method Nasal Cannula Nasal Cannula Nasal Cannula Oxygen Flow Rate 2 2 05/30/22 16:55 Temperature 98.1 F Pulse Rate 82 Respiratory Rate 20 Blood Pressure 125/65 Pulse Oximetry 94 Oxygen Delivery Method Oxygen Flow Rate 2.5 Oxygen Delivery Method Nasal Cannula Oxygen Flow Rate 2 Narrative Exam Narrative: General:? This is an elderly female, appears older than stated age, thin with muscle wasting HEENT:? Normocephalic, atraumatic, extraocular muscles intact, oral pharynx is clear and mucous membranes are moist. Neck: supple and symmetric, trachea is midline, no cervical adenopathy. Negative for JVD Chest:? Decreased AP diameter and contour without kyphoscoliosis, no tachypnea, equal chest rise bilaterally. Lungs:? Bibasilar rales without wheezing Cardio:?RRR no m/r/g. Abdomen: S NT ND. Musculoskeletal:? Muscle strength and tone are equal within normal limits, no deformity. Extremities: No edema or joint effusions. No cyanosis or clubbing. Skin:? Pale,? Warm to touch,dry and intact without rashes, ulcerations or petechiae.? Neuro:? Alert and orientated x3,? sensation to touch intact in all extremities, no gross deficits noted of cranial nerves. Psych:? Patient has a disheveled appearance, appropriate affect, mental status attitude thought context and judgment are appropriate for age. Objective Labs 05/30/22 11:45 05/30/22 11:45 Labs: Laboratory Results - last 24 hr 05/30/22 05/30/22 05/30/22 11:45 11:45 11:45 WBC 22.7 H RBC 4.29 Hgb 11.7 L Hct 36.3 MCV 84.7 MCH 27.2 MCHC 32.1 RDW 15.2 H Plt Count 582 H Neut % (Auto) 92.5 H Lymph % (Auto) 3.4 L [place] % (Auto) 4.0 Eos % (Auto) 0.0 L Baso % (Auto) 0.1 Neut # (Auto) 41198 H Lymph # (Auto) 800 L [place] # (Auto) 900 Eos # (Auto) 0 Baso # (Auto) 0 PT 15.4 H INR 1.3 D-Dimer Sodium 138 Potassium 4.5 Chloride 100 Carbon Dioxide 21 L BUN 17 Creatinine 0.79 Estimated GFR > 60 BUN/Creatinine Ratio 21.5 Glucose 85 Lactate Calcium 8.5 Total Bilirubin 0.9 AST 53 H ALT 26 Alkaline Phosphatase 168 H Troponin I < 0.012 NT-Pro-B Natriuret Pep 1540 H Total Protein 7.5 Albumin 3.6 Globulin 3.9 Albumin/Globulin Ratio 0.9 L Procalcitonin SARS-CoV-2 (PCR) Influenza A (RT-PCR) Influenza B (RT-PCR) RSV (PCR) 05/30/22 05/30/22 05/30/22 11:45 11:45 11:45 WBC RBC Hgb Hct MCV MCH MCHC RDW Plt Count Neut % (Auto) Lymph % (Auto) [place] % (Auto) Eos % (Auto) Baso % (Auto) Neut # (Auto) Lymph # (Auto) [place] # (Auto) Eos # (Auto) Baso # (Auto) PT INR D-Dimer 2007 H Sodium Potassium Chloride Carbon Dioxide BUN Creatinine Estimated GFR BUN/Creatinine Ratio Glucose Lactate 1.8 Calcium Total Bilirubin AST ALT Alkaline Phosphatase Troponin I NT-Pro-B Natriuret Pep Total Protein Albumin Globulin Albumin/Globulin Ratio Procalcitonin 1.90 H SARS-CoV-2 (PCR) Influenza A (RT-PCR) Influenza B (RT-PCR) RSV (PCR) 05/30/22 11:47 WBC RBC Hgb Hct MCV MCH MCHC RDW Plt Count Neut % (Auto) Lymph % (Auto) [place] % (Auto) Eos % (Auto) Baso % (Auto) Neut # (Auto) Lymph # (Auto) [place] # (Auto) Eos # (Auto) Baso # (Auto) PT INR D-Dimer Sodium Potassium Chloride Carbon Dioxide BUN Creatinine Estimated GFR BUN/Creatinine Ratio Glucose Lactate Calcium Total Bilirubin AST ALT Alkaline Phosphatase Troponin I NT-Pro-B Natriuret Pep Total Protein Albumin Globulin Albumin/Globulin Ratio Procalcitonin SARS-CoV-2 (PCR) Negative Influenza A (RT-PCR) Flu a negative Influenza B (RT-PCR) Flu b negative RSV (PCR) Negative Assessment & Plan Assessment & Plan narrative: 1. Sepsis secondary to multilobar pneumonia, bacterial, with hypotension and a cute respiratory failure with hypoxia - zosyn given in the ER, along with sepsis bolus. SOFA score of 2. Elevated PSI score. - continue ceftriaxone and azithro for presumed community acquired pneumoina - continue IV fluids overnight with hypotension in the ER. - WBC 22 on admission with elevated procalcitonin. CT negative for PE but diffuse bronchopneumonia noted on imaging. Some emphesematous changes noted on the apices. - ProBNP elevated, though echo already done in the ER and was unremarkable. 2. Opiate use - given 40 mg methadone this evening, resume 170 mg in the AM once able to verify dosing with methadone clinic. - also endorses fentanyl pills 3. Malnutrition, unclear if acute or chronic, with low BMI - muscle wasting on exam with BMI of 16.6 on admission - commissions manager consultation. - The patient is at much higher risk for medical and surgical complications because of his malnutrition. This increases the difficulty and complexity of medical and surgical interventions and increases the chances of poor outcomes such as morbidity and mortality. Code: DNR, surrogate is patient's son Additional history discussed with: ER provider. Reviewed relevant imaging and documentation. I have utilized all available immediate resources to obtain, update, or review the patient's current medications. Dispo: admitted as inpatient as her stay is expected to exceed two midnights. Anticipated LOS 3 days. COVID-19 COVID-19 status: Negative Time Spent With Patient Critical Care time: I spent a total of [] minutes of critical care time on this patient's care today; this time is exclusive of procedural time. Quality MIPS - Admit I confirm the patient?s Advance Care Plan is present, Code status is documented, Surrogate decision maker is in patient?s record [If Yes, STOP here]: Yes
[2022-05-30] MEDS: METHADONE 10 MG TABLET 40 MG PO (18:44)
[2022-05-30] MEDS: AZITHROMYCIN 500 MG in DEXTROSE 5% IN WATER 250 ML 250 MG IV (20:53)
[2022-05-31] VITALS (13 sets, daily range): BP systolic 109–119; BP diastolic 59–63; PULSE 71–94; RESP 19–20; TEMP 35.9–37.4; O2SAT 92–97
--- NOTE | 2022-05-31 04:08 | PC.NURSE ---
Pt sob with any activity, unable to lay down flat in bed. Needs to use the bedside commode instead of the bathroom. Pt needing Oxygen level increase with any activity. Pt able to recuperate and able to bring her oxygen saturation to the low 90's. Pt refusing breathing treatment. Urine is dark orange in color.
[2022-05-31] MEDS: SODIUM CHLORIDE 0.9% 1,000 ML 100 ML IV (05:21)
[2022-05-31 05:46] LABS: Appearance Urine UA CLEAR; Bilirubin Urine UA NEGATIVE (NEGATIVE); Glucose Urine UA NEGATIVE (Negative); Ketones Urine UA 1+ (NEGATIVE); Leukocyte Esterase Urine UA NEGATIVE (NEGATIVE); Nitrite Urine UA NEGATIVE (Negative); Occult Blood Urine UA NEGATIVE (Negative); Protein Urine UA TRACE (Negative); Specific Gravity Urine UA 1.025 (1.000-1.035); Urobilinogen Urine UA >=8.0 E.U./dL (0.2)
[2022-05-31 05:52] LABS: Color Urine UA Dark Yellow
[2022-05-31 05:53] LABS: Bacteria Urine Occasional (0-1); Culture Indicated Urine Cult Not Indicated; RBC Urine None Seen (0-5/HPF); Squamous Epithelial Cell Urine 0-1 /HPF (0-5/HPF); WBC Urine None Seen (0-5/HPF)
[2022-05-31 06:34] LABS: Add Manual Diff / Slide Review NO; Basophils Absolute Auto 100 /uL (0-100); Basophils Percent Auto 0.6 % (0-2); Eosinophils Absolute Auto 100 /uL (0-450); Eosinophils Percent Auto 0.5 % (2-4); Hematocrit 29.5 % (36-46); Hemoglobin 9.5 g/dL (12.0-16.0); Lymphocytes Absolute Auto 600 /uL (1100-4500); Mean Corpuscular HGB Conc 32.3 % (30-36); Mean Corpuscular Hemoglobin 27.4 PG (26-34); Monocytes Absolute Auto 600 /uL (0-900); Monocytes Percent Auto 4.8 % (3-14); Neutrophils Absolute Auto 10900 /uL (1500-7000); Neutrophils Percent Auto 89.1 % (50-75); Platelet Count 422 X10^3/uL (150-400); Red Blood Cell Count 3.47 X10^6/uL (4.0-5.2); Red Cell Distribution Width 15.4 % (11.6-14.8); White Blood Cell Count 12.2 X10^3/uL (4.5-11.0)
[2022-05-31 06:41] LABS: Blood Urea Nitrogen 8 mg/dL (7-17); Carbon Dioxide 19 mmol/L (22-32); Chloride 107 mmol/L (98-107); Estimated Glomerular Filt Rate > 60 mL/min (>60); Glucose 71 mg/dL (80-110); HEMOLYSIS < 15 (0-50); Magnesium 1.6 mg/dL (1.6-2.3); Potassium 3.5 mmol/L (3.4-5.1); Sodium 137 mmol/L (137-145)
[2022-05-31 06:50] LABS: Calcium 7.1 mg/dL (8.4-10.2)
[2022-05-31] MEDS: METHADONE 10 MG TABLET 170 MG PO (09:06)
--- NOTE | 2022-05-31 09:14 | CM.DANOTE ---
Patient is a 62 yo female who was admitted on 05/30/22 for SOB. Pt has [facility] and [facility] for insurance and her PCP is not listed. EMR was reviewed. Per MD, pt with hx of opiate abuse and on methadone and fentanyl daily. Pt admitted with sepsis, pneumonia, resp failure and malnutrition. SW met bedside with pt and explained role and she states she lives in [place] [facility] with family members and does not work or drive but denies any need for DME for ambulation. Pt currently on oxygen and does not have home O2 at baseline. Pt states her family members work but there's always someone home if I need help when I get home. Pt denies any hx of HH or SNF. Pt states she does not have an official PCP but goes to the [facility] when needed but states I don't have a PCP because I'm so rarely sick or need to go to the doctor. Pt confirms she goes to [facility] for [facility]adone [facility] and does not anticipate any needs at discharge and states family will provide transport home. SW discussed Personnel Quality Assurance Auditor may meet bedside with her to discuss options for good healing and health and pt does not appear to have eaten much of her breakfast and appears malnourished. Plan: SW to follow for plan of discharge to home when medically stable and any identified discharge planning needs. Pt's insurance and lack of established PCP could be a barrier to HH if needed. LUBNA Cantu Discharge Planning/Care Management CM Discharge Assessment Start: 05/31/22 09:12 Freq: Status: Active Protocol: Document 05/31/22 09:12 BF (Rec: 05/31/22 09:14 [id number]) Discharge Planning Assessment Assigned Office Copy Selector LUBNA Miller DPOA/Assigned Designee Name none Advance Directives? No Advance Directives on File No History Provided By Patient,Medical Record Has Patient been admitted in last 30 No days? Prior Living Arrangements Apartment/Condo Household Members family,children Type of transporation used prior to Relies on Others admit Independent with ADL's Yes: mostly Is patient alert and oriented? Yes Needs Assistance With Meal Prep,Managing Medications ,Home Chores / Shopping Caregiver for Another No Barriers to Discharge No Discharge Plan Home Transportation Arrangement Pt states family member can provide transport at d/c Referrals Initiated None needed Additional Comment Follow for any identified d/c needs, none identified right now Whiteboard Updated in Patient Room with Yes name and ext. # of Office Copy Selector Review Status In Process Please Provide Date Initial DC 05/31/22 Assessment Was Performed Next Review Type Continued Stay Review
[2022-05-31] MEDS: MAGNESIUM CHLORIDE 64 MG TABLET 128 MG PO (11:08)
[2022-05-31] MEDS: POTASSIUM CHLORIDE 20 MEQ TAB PO (11:09)
--- NOTE | 2022-05-31 11:54 | DIET.CONS ---
Dietary Consultation Note Admission Date: 05/30/2022 16:24 Assessment: 62y F admitted for SOB requiring O2 therapy referred to nutrition for malnutrition screening r/t low BMI. Pt c hx opioid use, currently on methadone and using fentanyl. Pt reports low body weight entire adult life, was 50kg in teens and early 20s, currently 42kg with BMI 16.6. States she does believe substance use influences her low body weight as she is often not feeling hungry. Additionally, pt reports food insecurity. Several months per year runs out of food money prior to end of month, shops at [employer] and keeps strict food budget. Pt with poor dentition, dislikes F/V, enjoys meats such as pork and beef, often eats rice. Pt reports recent SOB, difficulty walking more than a few steps before needing to sit down. Pt declines NFPE, however, visual exam shows boxing of acromion process, hollowed orbitals and depressed temples. Pt states she can see her ribs both anterior and posterior when unclothed. Pt states she always wears tights because she is often cold. Ht: 152.4 cm Wt: 42 kg BMI: 16.6 UBW: 42-45kg Last BM: 05/30/22 (05/30/22 16:58) MNA: 11 Everett Score: 19 Diet: 05/30/22 Dinner General (Regular) Diet Diet Modifications: add whole milk tid to trays Nutrition Percent Meal Consumed 50% 05/31/22 09:27 Labs: RBC 3.47 X10^6/uL (4.0-5.2) L 05/31/22 06:10 Hgb 9.5 g/dL (12.0-16.0) L 05/31/22 06:10 Hct 29.5 % (36-46) L 05/31/22 06:10 Creatinine 0.57 mg/dL (0.52-1.04) 05/31/22 06:10 Lactate 1.8 mmol/L (0.7-2.1) 05/30/22 11:45 NT-Pro-B Natriuret Pep 1540 pg/mL (<125) H 05/30/22 11:45 Nutrition Diagnosis: Severe Chronic Protein Calorie Malnutrition r/t substance use and food insecurity aeb BMI 16.6 (severe), pt with chronic opioid use, pt reports running out of food money at month's end, NFPE indicating moderate to severe muscle and fat wasting globally. Interventions: 1. To support nutrition status while hospitalized, sending whole milk in addition to meal trays tid. 2. To support nutrition status upon d/c, educated pt on importance of high kcal/high protein diet at home by increasing intake meats, dairy products, eggs, to purchase items on sale and freeze. EER: 1500kcals (35kcal/kg per PCM), 62g PRO (1.5g/kg per PCM) Monitoring/Evaluations: POs Electronically Signed by: Yeni Whitaker 05/31/22 11:54 Clinical Dietitian [address] [address]
[2022-05-31] MEDS: cefTRIAXone 1,000 MG in SODIUM CHLORIDE 0.9% 100 ML 200 MG IV (17:12)
--- NOTE | 2022-05-31 17:36 | PM.PN.1 ---
Subjective Subjective Date Patient Seen: 05/31/22 Time Patient Seen: 08:00 Interval history: She feels improved, but still short of breath. Exam Vital Signs (past 8 hours): - 05/31/22 10:54 05/31/22 11:00 05/31/22 14:08 Temperature 98 F Pulse Rate 71 Respiratory Rate 19 Blood Pressure 109/59 L Pulse Oximetry 95 94 97 Oxygen Delivery Method Nasal Cannula Nasal Cannula Oxygen Flow Rate 3 3 1.5 Oxygen Delivery Method Nasal Cannula Oxygen Flow Rate 1.5 Narrative Exam Narrative: General:?no acute distress Lungs:?bilateral crackles Cardio: regular rate and rhythm Abdomen: soft, nontender, nondistended Objective Labs 05/31/22 06:10 05/31/22 06:10 Labs: Laboratory Results - last 24 hr 05/31/22 05/31/22 05/31/22 03:30 06:10 06:10 WBC 12.2 H RBC 3.47 L Hgb 9.5 L Hct 29.5 L MCV 85.0 MCH 27.4 MCHC 32.3 RDW 15.4 H Plt Count 422 H Neut % (Auto) 89.1 H Lymph % (Auto) 5.0 L [place] % (Auto) 4.8 Eos % (Auto) 0.5 L Baso % (Auto) 0.6 Neut # (Auto) 22233 H Lymph # (Auto) 600 L [place] # (Auto) 600 Eos # (Auto) 100 Baso # (Auto) 100 Sodium 137 Potassium 3.5 Chloride 107 Carbon Dioxide 19 L BUN 8 Creatinine 0.57 Estimated GFR > 60 BUN/Creatinine Ratio 14.0 Glucose 71 L Calcium 7.1 L Magnesium 1.6 Urine Color Dark yellow Urine Appearance Clear Urine pH 6.0 Ur Specific Pine 1.025 Urine Protein Trace H Urine Glucose (UA) Negative Urine Ketones 1+ H Urine Occult Blood Negative Urine Nitrate Negative Urine Bilirubin Negative Urine Urobilinogen >=8.0 Ur Leukocyte Esterase Negative Urine RBC None seen Urine WBC None seen Ur Squamous Epith Cells 0-1 /hpf Urine Bacteria Occasional (0-1) Ur Culture Indicated? Cult not indicated PFSH Medical History Opiate use Surgical History No pertinent past surgical history Family History Mother No pertinent past medical history Father No pertinent past medical history Social History household members: family and children Smoking Status: Current every day smoker Assessment & Plan Assessment & Plan narrative: 1. Sepsis secondary to multilobar pneumonia, bacterial, with hypotension and acute respiratory failure with hypoxia - zosyn given in the ER, along with sepsis bolus. SOFA score of 2. Elevated PSI score. - continue ceftriaxone and azithro for presumed community acquired pneumoina - WBC 22 on admission with elevated procalcitonin improving with antibiotics 2. Opiate use - given 40 mg methadone this evening, resume 170 mg in the AM once able to verify dosing with methadone clinic. - also endorses fentanyl pills 3. Malnutrition, unclear if acute or chronic, with low BMI - muscle wasting on exam with BMI of 16.6 on admission - senior ios software engineer consultation. - The patient is at much higher risk for medical and surgical complications because of his malnutrition. This increases the difficulty and complexity of medical and surgical interventions and increases the chances of poor outcomes such as morbidity and mortality. COVID-19 COVID-19 status: Negative Time Spent With Patient Critical Care time: I spent a total of [] minutes of critical care time on this patient's care today; this time is exclusive of procedural time.
[2022-05-31] MEDS: AZITHROMYCIN 500 MG in DEXTROSE 5% IN WATER 250 ML 250 MG IV (18:21)
[2022-05-31] MEDS: SODIUM CHLORIDE 0.9% FLUSH 10 ML IV (20:05)
[2022-06-01 02:56] VITALS: BP 122/62; PULSE 86; RESP 19; TEMP 38.2; O2SAT 93
[2022-06-01] MEDS: ACETAMINOPHEN 325 MG TABLET 650 MG PO (03:04)
[2022-06-01 03:55] VITALS: TEMP 37.1
[2022-06-01 05:27] LABS: Acinetobacter baumannii Not Detected (Not Detect); Candida albicans Not Detected (Not Detect); Candida glabrata Not Detected (Not Detect); Candida krusei Not Detected (Not Detect); Candida parapsilosis Not Detected (Not Detect); Candida tropicalis Not Detected (Not Detect); E. coli Not Detected (Not Detect); Enterobacter cloacae complex Not Detected (Not Detect); Enterobacteriaceae species Not Detected (Not Detect); Enterococcus species Not Detected (Not Detect); Haemophilus influenzae Not Detected (Not Detect); Listeria monocytogenes Not Detected (Not Detect); Neisseria meningitidis Not Detected (Not Detect); Proteus species Not Detected (Not Detect); Pseudomonas aeruginosa Not Detected (Not Detect); Serratia marcescens Not Detected (Not Detect); Staphylococcus species Not Detected (Not Detect); Streptococcus agalactiae (Gr B Not Detected (Not Detect); Streptococcus pneumonia Not Detected (Not Detect); Streptococcus pyogenes (Gr A) Not Detected (Not Detect); Streptococcus species Not Detected (Not Detect)
[2022-06-01 07:00] VITALS: BP 93/51; PULSE 66; RESP 19; TEMP 35.8; O2SAT 95
[2022-06-01 07:05] LABS: Add Manual Diff / Slide Review NO; Basophils Absolute Auto 0 /uL (0-100); Basophils Percent Auto 0.4 % (0-2); Eosinophils Absolute Auto 100 /uL (0-450); Hematocrit 32.5 % (36-46); Hemoglobin 10.7 g/dL (12.0-16.0); Lymphocytes Absolute Auto 700 /uL (1100-4500); Lymphocytes Percent Auto 6.4 % (25-40); Mean Corpuscular Hemoglobin 27.5 PG (26-34); Mean Corpuscular Volume 83.5 fL (80-100); Monocytes Absolute Auto 600 /uL (0-900); Monocytes Percent Auto 5.3 % (3-14); Neutrophils Absolute Auto 9600 /uL (1500-7000); Neutrophils Percent Auto 86.9 % (50-75); Platelet Count 136 X10^3/uL (150-400); Red Blood Cell Count 3.89 X10^6/uL (4.0-5.2); Red Cell Distribution Width 15.3 % (11.6-14.8)
[2022-06-01 07:21] LABS: BUN Creatinine Ratio 12.8 (6-22); Blood Urea Nitrogen 6 mg/dL (7-17); Calcium 7.6 mg/dL (8.4-10.2); Carbon Dioxide 21 mmol/L (22-32); Chloride 105 mmol/L (98-107); Estimated Glomerular Filt Rate > 60 mL/min (>60); Glucose 87 mg/dL (80-110); HEMOLYSIS 22 (0-50); Magnesium 1.6 mg/dL (1.6-2.3); Potassium 3.9 mmol/L (3.4-5.1); Sodium 136 mmol/L (137-145)
[2022-06-01] MEDS: SODIUM CHLORIDE 0.9% FLUSH 10 ML IV (08:37)
--- NOTE | 2022-06-01 09:06 | PM.DS.1 ---
History of Present Illness History of Present Illness Date Patient Seen: 05/30/22 Time Patient Seen: 18:15 Chief complaint: hard time breathing T-3/cough getting worse Narrative: This is a 62-year-old female with a past medical history of opiate use on methadone (taking fentanyl pills as well daily) who presents with worsening shortness of breath over the past week. Her symptoms started over 3 weeks ago, progressing to productive with green sputum over the past week. She normally has no difficulty ambulating, but over the past week she can not ambulate more than 5 or 6 steps without feeling short of breath. As weakness, but denies unilateral weakness, numbness, or tingling. She notes subjective fever but has not measured at home, but denies chills, abdominal pain, dysuria, urine frequency, nausea, vomiting, or diarrhea. She denies any sick contacts or recent travel. In the emergency room, patient was hypoxic to the mid 80s on room air, improved with a couple of L of supplemental oxygen. The remaining signs were unremarkable, though over rest of her stay her blood pressures did fall but were responsive to fluids. Laboratory evaluation was notable for leukocytosis with WBC 22.7, mild anemia with hemoglobin of 11.7, and thrombocytosis with platelet count of 582. D-dimer was elevated at 2007. Chemistries were notable for an elevated proBNP at 1540, serotonin at 1.9, but the remainder of the studies were unremarkable. COVID-19, flu, and RSV, were negative by PCR Discharge Providers Provider Date of admission: 05/30/22 16:24 Discharge Date: 06/01/22 Primary care physician: Doctor Lois MD Consults: 05/30/22 17:09 Consult to [facility] [place] Orthotic Finish Grinding Technician Routine Comment: needs to establish with a primary care provider, [facility] Consult needed for:: Community Health Res Need Substance Abuse Assess Consult to Orthotic Finish Grinding Technician Routine Comment: 05/30/22 18:28 Consult to Dietitian, Adult Routine Comment: Reason For Exam: malnutrition, BMI 16 Discharge provider: Brandon Chavarria MD Summary Hospital Course Discharge Diagnosis: 1. Sepsis secondary to pneumonia and acute hypoxemic respiratory failure 2. Opiate dependence 3. Malnutrition Hospital Course: Ms. Mitchell was admitted with sepsis from a pneumonia and she was initially requiring oxygen. She was treated for community acquired pneumonia. On day of discharge she was feeling much better. She was able to ambulate with no shortness of breath and O2 sats greater than 90%. She was discharged with doxycyline and cefpodoxime for her pneumonia given concerns about other medications causing qtc prolongation with high methadone dose and also pencillin allergy. Exam Vital Signs (past 8 hours): Oxygen Delivery Method Room Air Oxygen Flow Rate 1.5 Narrative Exam Narrative: General:?no acute distress Lungs: clear bilaterally Cardio: regular rate and rhythm Abdomen: soft, nontender, nondistended Objective Labs 06/01/22 06:45 06/01/22 06:45 Labs: Laboratory Results - last 24 hr 06/01/22 06/01/22 06/01/22 06:45 06:45 13:15 WBC 11.0 RBC 3.89 L Hgb 10.7 L Hct 32.5 L MCV 83.5 MCH 27.5 MCHC 33.0 RDW 15.3 H Plt Count 136 L Neut % (Auto) 86.9 H Lymph % (Auto) 6.4 L [place] % (Auto) 5.3 Eos % (Auto) 1.0 L Baso % (Auto) 0.4 Neut # (Auto) 9600 H Lymph # (Auto) 700 L [place] # (Auto) 600 Eos # (Auto) 100 Baso # (Auto) 0 Sodium 136 L Potassium 3.9 Chloride 105 Carbon Dioxide 21 L BUN 6 L Creatinine 0.47 L Estimated GFR > 60 BUN/Creatinine Ratio 12.8 Glucose 87 Calcium 7.6 L Magnesium 1.6 A. baumannii (PCR) Not detected Tanisha albicans (PCR) Not detected C. glabrata (PCR) Not detected C. krusei (PCR) Not detected C. parapsilosis (PCR) Not detected C. tropicalis (PCR) Not detected Enterobacteriac sp PCR Not detected E. cloacae complex PCR Not detected Enterococcus sp PCR Not detected E. coli (PCR) Not detected H. influenzae (PCR) Not detected Klebsiella oxytoca PCR Not detected Klebsiella pneumoniae Not detected List. monocytogenes PCR Not detected N. meningitidis (PCR) Not detected Proteus species (PCR) Not detected Serratia marcescens PCR Not detected Staphylococcus sp PCR Not detected Staph aureus (PCR) Not detected mecA-Methicil Res Gene Not Reportable Streptococcus sp PCR Not detected Group A Strep (PCR) Not detected Strep agalactiae (PCR) Not detected Strep pneumoniae (PCR) Not detected P. aeruginosa (PCR) Not detected Izabela/B-Vanco Res Genes Not Reportable KPC-Carbap Res Gene PCR Not Reportable [facility] Medical History Opiate use Surgical History No pertinent past surgical history Family History Mother No pertinent past medical history Father No pertinent past medical history Social History household members: family and children Smoking Status: Current every day smoker Discharge Plan Discharge Plan Patient Disposition: Home Provider Discharge Comment: Ms. Mitchell came in to the hospital with a pneumonia. She improved with antibiotics. She has four more days of antibiotics and should complete them to clear up the infection. Discharge orders & Medications Prescriptions: New cefpodoxime 200 mg tablet 200 mg PO BID Qty: 8 0RF Rx Instructions: must administer with a meal/food doxycycline hyclate 100 mg tablet 100 mg PO BID Qty: 8 0RF Continued methadone 10 mg Tablet 170 mg PO QAM Follow up/Referrals: Doctor Abreu MD [Primary Care Provider] - Diet/Activity/Treatments Diet: Regular Visit Report/Discharge Packet Instructions: Pneumonia-Adult, DI for Pneumonia -- Adult, How to Prevent Falls Stand Alone Forms: Patient Portal/API, Stroke Signs & Symptoms Discharge Data Primary Care Provider: Doctor Lois
[2022-06-01] MEDS: METHADONE 10 MG TABLET 170 MG PO (09:17)
[2022-06-01 10:08] VITALS: O2SAT 90
--- NOTE | 2022-06-01 12:33 | PC.NURSE ---
Day shift: Paperwork signed and all questions answered. Pt has all personal belongings. Taken to car via WC by GRETA Hussein. Pt's Brother is driving her home today. Pt maintaining O2 sat of >91% RA with activity. scripts sent to Pt's pharmacy electronic.
--- NOTE | 2022-06-01 15:43 | CM.DPNOTE ---
DC Note DC home on oral abx today, no DC needs identified -this confirmed by discharging provider and RN JW
== END 2022-06-01 12:35 | disposition home or self-care (01) | DRG 871 ==
LOC: ED 16:25 → AC 16:25
PROVIDERS: Emergency Medicine; Admitting Provider Internal Medicine; Emergency Provider Student in an Organized Health Care Education/Training Program; Referring Provider Student in an Organized Health Care Education/Training Program; Visit Provider Internal Medicine
DX: A41.9 Sepsis, unspecified organism (principal); E43 Unspecified severe protein-calorie malnutrition; J18.9 Pneumonia, unspecified organism; J96.01 Acute respiratory failure with hypoxia; Z68.1 Body mass index [BMI] 19.9 or less, adult; F11.20 Opioid dependence, uncomplicated; F17.200 Nicotine dependence, unspecified, uncomplicated; Z20.822 Contact with and (suspected) exposure to COVID-19; Z66 Do not resuscitate; Z88.0 Allergy status to penicillin
CPT/HCPCS: 0241U; 36415; 71045; 71275; 74177; 76705; 80048; 80053; 81001; 83605; 83735; 83880; 84145; 84484; 85025; 85379; 85610; 87040; 87077; 87150; 93005; 93306; 94760; 96365; 96367; 99284; 99291; J0696; J2543; Q9967